=== PATIENT | male | born 2000 | race Caucasian/White ===

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

== ENCOUNTER 2018-07-11 12:22 | Emergency (ER) | payer BC, OTHER ==
[2018-07-11 12:30] VITALS: BP 141/99; PULSE 102; TEMP 98.3
--- NOTE | 2018-07-11 13:02 | XR ---
EXAMINATION TYPE: XR knee complete LT DATE OF EXAM: 07/11/2018 COMPARISON: NONE HISTORY: Pain TECHNIQUE: Four views are submitted. FINDINGS: Joint spaces are preserved. Osseous structures are intact. No acute fracture seen. There is a supr apatellar bursal fluid collection. IMPRESSION: 1. No acute fracture or dislocation. 2. Large suprapatellar bursal fluid collection. If there is concern for internal derangement correlat e with MRI.
[2018-07-11] MEDS ORDERED: IBUPROFEN 600 MG TAB PO STA (13:25)
--- NOTE | 2018-07-11 13:28 | ED ---
General Adult HPI - General Chief complaint: Extremity Injury, Lower Stated complaint: leg injury Time Seen by Provider: 07/11/18 12:35 Source: patient, RN notes reviewed Mode of arrival: wheelchair Limitations: no limitations - History of Present Illness Initial comments: Patient 18-year-old male presented to the emergency room today with a chief complaint of injury to the left knee that occurred 2 days ago he was working out. He does admit that he was doing leg press when he felt something in the left knee. He states he's had increased swelling and pain. He does admit that it's worse with extension and flexion on the medial aspect of the knee. Patient does admit that he had a meniscus repair in the past. Patient denies any other complaints or symptoms. Patient denies any recent fever, chills, shortness of breath, chest pain, back pain, abdominal pain, nausea or vomiting, headaches or visual changes, or any other complaints. - Related Data Home Medications Medication Instructions Recorded Confirmed No Known Home Medications 02/03/15 12/19/16 Allergies Allergy/AdvReac Type Severity Reaction Status Date / Time No Known Allergies Allergy Verified 07/11/18 12:30 Review of Systems ROS Statement: Those systems with pertinent positive or pertinent negative responses have been documented in the HPI. ROS Other: All systems not noted in ROS Statement are negative. Past Medical History Past Medical History: No Reported History History of Any Multi-Drug Resistant Organisms: None Reported Past Surgical History: No Surgical Hx Reported Additional Past Surgical History / Comment(s): left meniscus repair. Past Psychological History: No Psychological Hx Reported Smoking Status: Never smoker Past Alcohol Use History: None Reported Past Drug Use History: None Reported General Exam - General Exam Comments Initial Comments: General: The patient is awake and alert, in no distress, and does not appear acutely ill. Neck: The neck is supple, there is no tenderness or JVD. Cardiovascular: There is a regular rate and rhythm. No murmur, rub or gallop is appreciated. Respiratory: Lungs are clear to auscultation, respirations are non-labored, breath sounds are equal. No wheezes, stridor, rales, or rhonchi. Musculoskeletal: Moderate swelling of the left knee. Patient shows limited range of motion with extension -5 in flexion -15 due to pain. Patient does have some tenderness over the medial aspect. No tenderness to the left hip or down to lay left ankle. Sensations are intact. Pedal pulses 2+. Neurological: A&O x 3. CN II-XII intact, There are no obvious motor or sensory deficits. Coordination appears grossly intact. Speech is normal. Skin: Skin is warm and dry and no rashes or lesions are noted. Psychiatric: Normal mood and affect. Limitations: no limitations Course Vital Signs 07/11/18 12:27 Temperature 98.3 F Pulse Rate 102 H Respiratory 18 Rate Blood Pressure 141/99 O2 Sat by Pulse 99 Oximetry Medical Decision Making - Medical Decision Making X-ray reviewed does show moderate effusion. Results were discussed with the patient. He is advised ice elevate the affected area and follow-up with orthopedics. Denies use anti-inflammatories and ice elevate the affected area. Disposition Clinical Impression: Knee effusion Disposition: HOME SELF-CARE Condition: Good Instructions: Knee Pain (ED) Additional Instructions: Please follow-up with orthopedic doctor over the next 2-5 days. Please continue to ice elevate the affected area. Please use ibuprofen for pain. Return to emergency room for any other concerns.. Is patient prescribed a controlled substance at d/c from ED?: No Referrals: None,Stated [Primary Care Provider] - 1-2 days Jethro Pinto MD [REFERRING] - 1-2 days Time of Disposition: 13:27
[2018-07-11 13:52] VITALS: RESP 16
== END 2018-07-11 14:05 | disposition home or self-care (01) ==
LOC: EC 12:22
DX: M25.462 Effusion, left knee (principal)
CPT/HCPCS: 99283

== ENCOUNTER → 2019-05-04 | Outpatient (CLI) | payer BC, OTHER ==
[2019-05-04 13:09] LABS: HCT 42.7 % (39.0-53.0); HGB 13.6 gm/dL (13.0-17.5); Hypochromasia Slight; MCH 28.8 pg (25.0-35.0); MCHC 31.9 g/dL (31.0-37.0); MCV 90.5 fL (80.0-100.0); Mean Platelet Volume 5.5; Platelet Count 410 k/uL (150-450); RBC 4.72 m/uL (4.30-5.90); RDW 12.7 % (11.5-15.5); WBC 15.5 k/uL (4.0-11.0)
[2019-05-04 21:18] LABS: Chol/HDL Ratio 3.69; LDL Cholesterol,Calculated 98.2 mg/dL (0.0-131.0); VLDL Calculation 14.8 mg/dL (5.00-40.00)
== END | disposition home or self-care (01) ==
LOC: LABWHC1 11:55
PROVIDERS: ATTEND Physician Assistant
DX: L70.0 Acne vulgaris (principal); Z79.899 Other long term (current) drug therapy
CPT/HCPCS: 36415; 80061; 84450; 84460; 85027

== ENCOUNTER → 2019-06-20 | Outpatient (CLI) | payer BC, OTHER ==
[2019-06-20 14:58] LABS: HCT 41.2 % (39.0-53.0); HGB 13.1 gm/dL (13.0-17.5); Hypochromasia Slight; MCHC 31.9 g/dL (31.0-37.0); Mean Platelet Volume 5.4; Platelet Count 440 k/uL (150-450); RBC 4.68 m/uL (4.30-5.90); WBC 16.9 k/uL (4.0-11.0)
[2019-06-20 18:52] LABS: Chol/HDL Ratio 4.16; LDL Cholesterol,Calculated 98.6 mg/dL (0.0-131.0); VLDL Calculation 18.4 mg/dL (5.00-40.00)
== END | disposition home or self-care (01) ==
LOC: LABWHC1 13:52
PROVIDERS: ATTEND Physician Assistant
DX: L70.0 Acne vulgaris (principal); Z79.899 Other long term (current) drug therapy
CPT/HCPCS: 36415; 80061; 84450; 84460; 85027

== ENCOUNTER → 2019-09-06 | Outpatient (CLI) | payer BC, OTHER ==
[2019-09-06 14:41] LABS: Basophils % (A) 0 %; Eosinophils # (A) 0.1 k/uL (0-0.7); Eosinophils % (A) 1 %; HCT 41.7 % (39.0-53.0); HGB 12.5 gm/dL (13.0-17.5); Hypochromasia Slight; Lymphocytes # (A) 2.5 k/uL (1.0-4.8); Lymphocytes % (A) 25 %; MCH 26.1 pg (25.0-35.0); MCHC 29.9 g/dL (31.0-37.0); MCV 87.2 fL (80.0-100.0); Mean Platelet Volume 6.9; Monocytes # (A) 0.7 k/uL (0-1.0); Monocytes % (A) 7 %; Neutrophils # (A) 6.1 k/uL (1.3-7.7); Neutrophils % (A) 64 %; Platelet Count 436 k/uL (150-450); RBC 4.79 m/uL (4.30-5.90); RDW 13.3 % (11.5-15.5); WBC 9.6 k/uL (3.8-10.6)
[2019-09-06 16:32] LABS: Erythrocyte Sedimentation Rate 36 mm/hr (0-15)
[2019-09-06 18:39] LABS: Albumin 4.1 g/dL (3.80-4.90); Albumin/Globulin Ratio 1.28 (1.60-3.17); Anion Gap 8.6 mmol/L (4.00-12.00); BUN/Creat Ratio 16.67 Ratio (12.00-20.00); C Reactive Protein 2.3 mg/dL (0.0-0.8); Calcium 9.6 mg/dL (8.7-10.3); Carbon Dioxide 29.4 mmol/L (21.6-31.8); Chol/HDL Ratio 4.18; Globulin 3.2 g/dL (1.6-3.3); LDL Cholesterol,Calculated 100.2 mg/dL (0.0-131.0); Non-African American GFR(CKD) 121.7 (60.0-200.0); Potassium 5.3 mmol/L (3.5-5.5); Total Bilirubin 0.1 mg/dL (0.3-1.2); Total Protein 7.3 g/dL (6.2-8.2); VLDL Calculation 20.8 mg/dL (5.00-40.00)
[2019-09-06 20:21] LABS: Cyclic Citrull Pep IgG Unit 1.6 U/mL; Cyclic Citrullinated Pep IgG NEGATIVE (NEGATIVE)
== END | disposition home or self-care (01) ==
LOC: LABWHC1 13:47
PROVIDERS: ATTEND Internal Medicine Rheumatology
DX: Z51.81 Encounter for therapeutic drug level monitoring (principal)
CPT/HCPCS: 36415; 80053; 80061; 85025; 85652; 86038; 86140; 86200; 86431

== ENCOUNTER 2020-04-11 19:31 | Emergency (ER) | payer BC, OTHER ==
[2020-04-11 19:44] VITALS: TEMP 98.6
[2020-04-11 21:48] LABS: Basophils # (A) 0.1 k/uL (0-0.2); Basophils % (A) 1 %; Eosinophils # (A) 0.1 k/uL (0-0.7); Eosinophils % (A) 1 %; HCT 37.1 % (39.0-53.0); HGB 11.7 gm/dL (13.0-17.5); Lymphocytes # (A) 1.6 k/uL (1.0-4.8); Lymphocytes % (A) 19 %; MCH 26.8 pg (25.0-35.0); MCHC 31.7 g/dL (31.0-37.0); MCV 84.7 fL (80.0-100.0); Mean Platelet Volume 6.8; Monocytes % (A) 12 %; Neutrophils # (A) 5.5 k/uL (1.3-7.7); Neutrophils % (A) 66 %; Platelet Count 345 k/uL (150-450); RBC 4.38 m/uL (4.30-5.90); RDW 12.7 % (11.5-15.5); WBC 8.4 k/uL (3.8-10.6)
--- NOTE | 2020-04-11 21:57 | XR ---
EXAMINATION TYPE: XR chest 2V DATE OF EXAM: 04/11/2020 COMPARISON: 03/08/2013 HISTORY: Chest pain TECHNIQUE: FINDINGS: Heart and mediastinum are normal. Lungs are clear. Diaphragm is normal. Bony thorax appears normal. IMPRESSION: Normal chest. No change.
[2020-04-11 22:00] LABS: ALT 9 U/L (4-49); AST 22 U/L (17-59); African American GFR (CKD) >90 (>60 ml/min/1.73 sqM); Albumin 3.8 g/dL (3.5-5.0); Alkaline Phosphatase 85 U/L (38-126); Anion Gap 7 mmol/L; Blood Urea Nitrogen 11 mg/dL (9-20); Carbon Dioxide 30 mmol/L (22-30); Chloride 105 mmol/L (98-107); Glucose 89 mg/dL (74-99); Magnesium 1.8 mg/dL (1.6-2.3); Non-African American GFR(CKD) >90 (>60 ml/min/1.73 sqM); Potassium 4.3 mmol/L (3.5-5.1); Sodium 142 mmol/L (137-145); Total Bilirubin 0.3 mg/dL (0.2-1.3); Total Protein 7.1 g/dL (6.3-8.2)
[2020-04-11] MEDS ORDERED: SODIUM CHLORIDE 0.9% 1,000 ML IV ONE (22:33)
[2020-04-11 23:20] VITALS: PULSE 87; RESP 17
--- NOTE | 2020-04-11 23:23 | CT ---
EXAMINATION TYPE: CT chest angio for PE DATE OF EXAM: 04/11/2020 COMPARISON: None HISTORY: chest pain, elevated d-dimer CT DLP: 463.9 mGycm Automated exposure control for dose reduction was used. CONTRAST: Performed without and with IV Contrast, patient injected with 100 mL of Isovue 300. There are 3-D post processed images. The lungs are clear of infiltrate. There is no evidence of a pulmonary mass. There is no pleural effu fracisco or pneumothorax. There is no mediastinal adenopathy. Thoracic aorta is intact. There are no hilar masses. There is no aneurysm or dissection. There is normal contrast opacification of the pulmonary arteries. There are no filling defects. Thoracic spine is intact. Sternum appears intact. The ribs appear intact. The upper abdominal soft ti ssues appear intact. IMPRESSION: Normal exam. No evidence of pulmonary embolism.
--- NOTE | 2020-04-12 00:17 | ED ---
General Adult HPI - General Chief complaint: Chest Pain Stated complaint: Chest Pain Time Seen by Provider: 04/11/20 20:48 Source: patient, RN notes reviewed, old records reviewed Mode of arrival: ambulatory Limitations: no limitations - History of Present Illness Initial comments: 27-year-old male patient presents ED for evaluation. Patient reports that he did have some right parasternal chest pain reports that it was sharply pleuritic in nature. Began about 2 hours prior to presentation. This time pain has resolved. Denies any recent falls or trauma. Denies any acute complaints. Systemic: Pt denies fatigue, fever/chills, rash. Pt denies weakness, night sweats, weight loss. Neuro: Pt denies headache, visual disturbances, syncope or pre-syncope. HEENT: Pt denies ocular discharge or irritation, otalgia, rhinorrhea, pharyngitis or notable lymphadenopathy. Cardiopulmonary: Pt denies SOB, heart palpitations, dyspnea on exertion. Abdominal/GI: Pt denies abdominal pain, n/v/d. : Pt denies dysuria, burning w/ urination, frequency/urgency. Denies new onset urinary or bowel incontinence. MSK: Pt denies myalgia, loss of strength or function in extremities. Neuro: Pt denies new onset weakness, paresthesias. - Related Data Home Medications Medication Instructions Recorded Confirmed No Known Home Medications 04/11/20 04/11/20 Allergies Allergy/AdvReac Type Severity Reaction Status Date / Time No Known Allergies Allergy Verified 04/11/20 21:46 Review of Systems ROS Statement: Those systems with pertinent positive or pertinent negative responses have been documented in the HPI. ROS Other: All systems not noted in ROS Statement are negative. Past Medical History Past Medical History: No Reported History History of Any Multi-Drug Resistant Organisms: None Reported Past Surgical History: No Surgical Hx Reported Additional Past Surgical History / Comment(s): left meniscus repair. Past Psychological History: No Psychological Hx Reported Smoking Status: Never smoker Past Alcohol Use History: None Reported Past Drug Use History: None Reported General Exam - General Exam Comments Initial Comments: Constitutional: NAD, AOX3, Pt has pleasant affect. HEENT: NC/AT, trachea midline, neck supple, no lymphadenopathy. Posterior pharynx non erythematous, without exudates. External ears appear normal, without discharge. Mucous membranes moist. Eyes PERRLA, EOM intact. There is no scleral icterus. No pallor noted. Cardiopulmonary: RRR, no murmurs, rubs or gallops, no JVD noted. Lungs CTAB in anterior and posterior landry. No peripheral edema. Abdominal exam: Abdomen soft and non-distended. Abdomen non-tender to palpation in all 4 quadrants. Bowel sounds active in LLQ. No hepatosplenomegaly. No ecchymosis Neuro: CN II-XII grossly intact. No nuchal rigidity. MSK: No posterior calf tenderness bilaterally, homans sign negative bilaterally. Posterior tibialis and radial pulse +2 bilaterally. Sensation intact in upper and lower extremities. Full active ROM in upper and lower extremities, 5/5 stregnth. Limitations: no limitations Course Vital Signs 04/11/20 04/11/20 04/11/20 19:41 20:48 21:30 Temperature 98.6 F 98.6 F Pulse Rate 95 98 Pulse Rate [ 80 [place] Wiper ] Respiratory 18 18 Rate Blood Pressure 142/90 127/71 O2 Sat by Pulse 99 100 Oximetry 04/11/20 04/11/20 04/12/20 23:01 23:19 00:31 Temperature Pulse Rate 94 87 Pulse Rate [ [place] Wiper ] Respiratory 18 17 Rate Blood Pressure 126/63 135/74 134/67 O2 Sat by Pulse 98 100 Oximetry Medical Decision Making - Medical Decision Making 19-year-old male patient was seen for chest pain. Patient will signs are stable, afebrile. Physical exam did not display acute pathology. The investigations revealed elevated D dimer. CT is negative. EKG is nonischemic. Patient is asymptomatic. Will be discharged with outpatient follow-up. Case discussed with Dr. Lucia. - Lab Data Result diagrams: 04/11/20 21:36 04/11/20 21:36 Lab Results 04/11/20 04/11/20 04/11/20 Range/Units 21:36 21:36 21:36 WBC 8.4 (3.8-10.6) k/uL RBC 4.38 (4.30-5.90) m/uL Hgb 11.7 L (13.0-17.5) gm/dL Hct 37.1 L (39.0-53.0) % MCV 84.7 (80.0-100.0) fL MCH 26.8 (25.0-35.0) pg MCHC 31.7 (31.0-37.0) g/dL RDW 12.7 (11.5-15.5) % Plt Count 345 (150-450) k/uL Neutrophils % 66 % Lymphocytes % 19 % Monocytes % 12 % Eosinophils % 1 % Basophils % 1 % Neutrophils # 5.5 (1.3-7.7) k/uL Lymphocytes # 1.6 (1.0-4.8) k/uL Monocytes # 1.0 (0-1.0) k/uL Eosinophils # 0.1 (0-0.7) k/uL Basophils # 0.1 (0-0.2) k/uL D-Dimer (<0.60) mg/L FEU Sodium 142 (137-145) mmol/L Potassium 4.3 (3.5-5.1) mmol/L Chloride 105 (98-107) mmol/L Carbon Dioxide 30 (22-30) mmol/L Anion Gap 7 mmol/L BUN 11 (9-20) mg/dL Creatinine 1.09 (0.66-1.25) mg/dL Est GFR (CKD-EPI)AfAm >90 (>60 ml/min/1.73 sqM) Est GFR (CKD-EPI)NonAf >90 (>60 ml/min/1.73 sqM) Glucose 89 (74-99) mg/dL Calcium 9.0 (8.4-10.2) mg/dL Magnesium 1.8 (1.6-2.3) mg/dL Total Bilirubin 0.3 (0.2-1.3) mg/dL AST 22 (17-59) U/L ALT 9 (4-49) U/L Alkaline Phosphatase 85 (38-126) U/L Troponin I <0.012 (0.000-0.034) ng/mL Total Protein 7.1 (6.3-8.2) g/dL Albumin 3.8 (3.5-5.0) g/dL 04/11/20 Range/Units 21:36 WBC (3.8-10.6) k/uL RBC (4.30-5.90) m/uL Hgb (13.0-17.5) gm/dL Hct (39.0-53.0) % MCV (80.0-100.0) fL MCH (25.0-35.0) pg MCHC (31.0-37.0) g/dL RDW (11.5-15.5) % Plt Count (150-450) k/uL Neutrophils % % Lymphocytes % % Monocytes % % Eosinophils % % Basophils % % Neutrophils # (1.3-7.7) k/uL Lymphocytes # (1.0-4.8) k/uL Monocytes # (0-1.0) k/uL Eosinophils # (0-0.7) k/uL Basophils # (0-0.2) k/uL D-Dimer 4.40 H (<0.60) mg/L FEU Sodium (137-145) mmol/L Potassium (3.5-5.1) mmol/L Chloride (98-107) mmol/L Carbon Dioxide (22-30) mmol/L Anion Gap mmol/L BUN (9-20) mg/dL Creatinine (0.66-1.25) mg/dL Est GFR (CKD-EPI)AfAm (>60 ml/min/1.73 sqM) Est GFR (CKD-EPI)NonAf (>60 ml/min/1.73 sqM) Glucose (74-99) mg/dL Calcium (8.4-10.2) mg/dL Magnesium (1.6-2.3) mg/dL Total Bilirubin (0.2-1.3) mg/dL AST (17-59) U/L ALT (4-49) U/L Alkaline Phosphatase (38-126) U/L Troponin I (0.000-0.034) ng/mL Total Protein (6.3-8.2) g/dL Albumin (3.5-5.0) g/dL - EKG Data -: EKG Interpreted by Me (and Dr. Lucia ) EKG Comments: ventricular rate 79, WA interval 142, QRS 82, QT/QTC 360/412. Normal sinus rhythm, normal EKG, no concern for acute ischemia. Disposition Clinical Impression: Atypical chest pain Disposition: HOME SELF-CARE Condition: Stable Instructions (If sedation given, give patient instructions): Chest Wall Pain ( ED) Additional Instructions: follow-up with primary care provider tomorrow. Return to ER if any worsening symptoms. Is patient prescribed a controlled substance at d/c from ED?: No Referrals: Vitor Mayes MD [Primary Care Provider] - 1-2 days
[2020-04-12 00:32] VITALS: BP 134/67
== END 2020-04-12 00:29 | disposition home or self-care (01) ==
LOC: EC 19:31
DX: R07.89 Other chest pain (principal)
CPT/HCPCS: 36415; 93005; 85379; 80053; 83735; 84484; 85025; 71046; 71275; 99285; 96360; Q9967

== ENCOUNTER 2021-04-30 19:59 | Emergency (ER) | payer BC, OTHER ==
[2021-04-30 20:35] VITALS: BP 134/84; PULSE 79; RESP 18; TEMP 98.1
[2021-04-30] MEDS ORDERED: PROPARACAINE 0.5% OPHTH DROPS 15 ML BTL LEFT EYE STA (20:57)
[2021-04-30] MEDS ORDERED: FLUORESCEIN STRIPS 1 MG STRIP LEFT EYE ONE (20:57)
--- NOTE | 2021-04-30 21:51 | ED ---
Eye Problem HPI - General Chief complaint: Eye Problems Stated complaint: Eye irritation Time Seen by Provider: 04/30/21 20:54 Source: patient, RN notes reviewed Mode of arrival: ambulatory Limitations: no limitations - History of Present Illness Initial comments: Patient is a 20-year-old male presenting to the emergency Department with complaints of left eye irritation started this morning. He states the eye feels very irritated, straining and has trouble opening all the way secondary to light sensitivity. He feels like there is something underneath his top eyelid. He does not remember getting anything in his eye, he denies any recent colds. He does not wear contacts. Denies any fevers or chills. There is only clear drainage from the eye. He has no further complaints. - Related Data Previous Rx's Medication Instructions Recorded Erythromycin Ophth Oint [Romycin 1 applic LEFT EYE QID 5 Days #1 gm 04/30/21 Ophth Oint] Allergies Allergy/AdvReac Type Severity Reaction Status Date / Time No Known Allergies Allergy Verified 04/30/21 20:33 Review of Systems ROS Statement: Those systems with pertinent positive or pertinent negative responses have been documented in the HPI. ROS Other: All systems not noted in ROS Statement are negative. Past Medical History Past Medical History: No Reported History History of Any Multi-Drug Resistant Organisms: None Reported Past Surgical History: No Surgical Hx Reported Additional Past Surgical History / Comment(s): left meniscus repair. Past Psychological History: No Psychological Hx Reported Smoking Status: Never smoker Past Alcohol Use History: None Reported Past Drug Use History: None Reported General Exam - General Exam Comments Initial Comments: GENERAL: Patient is well-developed and well-nourished. Patient is nontoxic and in no acute distress. HEAD: Atraumatic, normocephalic. EYES: Pupils equal round and reactive to light, extraocular movements intact, sclera anicteric. Eyelids were unremarkable. Left eye is slightly injected, there is no foreign body visible, on fluorescein stain there is no obvious corneal abrasion, no foreign body. No styes present. ENT: Moist mucous membranes. LUNGS: Unlabored respirations. Breath sounds clear to auscultation bilaterally and equal. No wheezes rales or rhonchi. HEART: Regular rate and rhythm without murmurs, rubs or gallops. MUSCULOSKELETAL: Normal extremities with adequate strength and normal range of motion, no pitting or edema. No clubbing or cyanosis. SKIN: Warm, Dry, normal turgor, no rashes or lesions noted. Limitations: no limitations Course Vital Signs 04/30/21 20:30 Temperature 98.1 F Pulse Rate 79 Respiratory 18 Rate Blood Pressure 134/84 O2 Sat by Pulse 100 Oximetry Medical Decision Making - Medical Decision Making Patient is a 20-year-old male here for left eye irritation started this morning. I see no foreign body in the eye, no signs of corneal abrasion on fluorescein stain. He did report improvement after proparacaine drops. He does not work contacts. I will start him on erythromycin ointment for possible small abrasion. He is agreeable to this. Symptoms persisted follow up with his eye doctor. Return parameters were discussed with him and he verbalized understanding. Case discussed with Dr. Schneider. Disposition Clinical Impression: Left eye pain Disposition: HOME SELF-CARE Condition: Stable Instructions (If sedation given, give patient instructions): Eye Pain (ED) Additional Instructions: Please return to the Emergency Department if symptoms worsen or any other concerns. Use antibiotic eye ointment as prescribed. If symptoms persist, follow-up with eye doctor. Prescriptions: Erythromycin Ophth Oint [Romycin Ophth Oint] 1 applic LEFT EYE QID 5 Days #1 gm Is patient prescribed a controlled substance at d/c from ED?: No Referrals: None,Stated [Primary Care Provider] - 1-2 days Steffen Disla MD [STAFF PHYSICIAN] - 1-2 days Time of Disposition: 21:50
== END 2021-04-30 21:55 | disposition home or self-care (01) ==
LOC: EC 19:59
DX: H57.12 Ocular pain, left eye (principal)
CPT/HCPCS: 99283

== ENCOUNTER → 2021-05-02 | Outpatient (CLI) | payer OTHER ==
[2021-05-02 23:30] LABS: Rheumatoid Factor, Qnt <10 IU/mL (0-15)
[2021-05-04 11:23] LABS: Angiotensin-1 Converting Enz. 34 U/L (8-52)
[2021-05-04 13:50] LABS: HLA B27 NEGATIVE
== END | disposition home or self-care (01) ==
LOC: LABWHC1 11:09
PROVIDERS: ATTEND Ophthalmology
DX: H20.9 Unspecified iridocyclitis (principal)
CPT/HCPCS: 36415; 82164; 85549; 85652; 86038; 86140; 86431; 86618; 86780; 86812

== ENCOUNTER → 2021-07-06 | Outpatient (CLI) | payer OTHER ==
--- NOTE | 2021-07-06 13:09 | XR ---
Right shoulder HISTORY: S 46.811A 3 views the right shoulder The distal clavicle is slightly superiorly displaced in relation to the acromion. No evident fracture or dislocation. Right lung apex as visualized is normal. IMPRESSION: Findings may represent type II acromial clavicular separation
== END | disposition home or self-care (01) ==
LOC: RADXRMAIN 12:44
PROVIDERS: ATTEND Emergency Medicine
DX: S46.811A Strain of other muscles, fascia and tendons at shoulder and upper arm level, right arm, initial encounter (principal)

== ENCOUNTER 2021-10-13 10:25 | Emergency (ER) | payer OTHER ==
[2021-10-13 10:47] VITALS: RESP 16; TEMP 98
[2021-10-13 11:30] VITALS: BP 122/63; PULSE 68
--- NOTE | 2021-10-13 11:44 | ED ---
Head Injury HPI - General Chief complaint: Head Injury Stated complaint: [facility]-head injury Time Seen by Provider: 10/13/21 10:27 Source: patient, EMS, RN notes reviewed Mode of arrival: EMS Limitations: no limitations - History of Present Illness Initial comments: This a 21-year-old male presents emergency Department with chief complaint of head injury. Patient states he is sitting up with bad states that work fell off striking the back service had he felt very days, diffuse initially states that symptoms are resolving pelvic using a pass out. He had no loss conscious. He does complain of severe headache at this time. Patient denies any blood thinners. Patient denies any vomiting feels slightly nauseated no visual changes at this time. - Related Data Home Medications Medication Instructions Recorded Confirmed No Known Home Medications 10/13/21 10/13/21 Allergies/Adverse reactions: Allergies Allergy/AdvReac Type Severity Reaction Status Date / Time No Known Allergies Allergy Verified 10/13/21 11:23 Review of Systems ROS Statement: Those systems with pertinent positive or pertinent negative responses have been documented in the HPI. ROS Other: All systems not noted in ROS Statement are negative. Past Medical History Past Medical History: No Reported History History of Any Multi-Drug Resistant Organisms: None Reported Past Surgical History: Orthopedic Surgery Additional Past Surgical History / Comment(s): left meniscus repair. Past Psychological History: No Psychological Hx Reported Smoking Status: Never smoker Past Alcohol Use History: None Reported Past Drug Use History: None Reported General Exam Limitations: no limitations General appearance: alert, in no apparent distress Head exam: Present: atraumatic, normocephalic, normal inspection Eye exam: Present: normal appearance, PERRL, EOMI. Absent: scleral icterus, conjunctival injection, periorbital swelling ENT exam: Present: normal exam, normal oropharynx, mucous membranes moist Neck exam: Present: normal inspection, full ROM. Absent: tenderness, meningismus, lymphadenopathy Respiratory exam: Present: normal lung sounds bilaterally. Absent: respiratory distress, wheezes, rales, rhonchi, stridor Cardiovascular Exam: Present: regular rate, normal rhythm, normal heart sounds. Absent: systolic murmur, diastolic murmur, rubs, gallop, clicks Neurological exam: Present: alert, oriented X3, CN II-XII intact, reflexes normal, other (Finger to nose intact bilaterally). Absent: motor sensory deficit Skin exam: Present: warm, dry, intact, normal color. Absent: rash Course Vital Signs 10/13/21 10/13/21 10:25 11:28 Temperature 98 F Pulse Rate 84 68 Respiratory 16 16 Rate Blood Pressure 145/75 122/63 O2 Sat by Pulse 99 98 Oximetry Disposition Clinical Impression: Contusion of head Disposition: HOME SELF-CARE Condition: Stable Instructions (If sedation given, give patient instructions): Head Injury (ED) Additional Instructions: Please return to the Emergency Department if symptoms worsen or any other concerns. Is patient prescribed a controlled substance at d/c from ED?: No Referrals: None,Stated [Primary Care Provider] - 1-2 days Time of Disposition: 12:24
--- NOTE | 2021-10-13 12:16 | CT ---
EXAMINATION TYPE: CT brain wo con DATE OF EXAM: 10/13/2021 COMPARISON: CT dated 04/03/2011 HISTORY: Head injury, nausea and headache. CT DLP: 1125.4 mGycm Automated exposure control for dose reduction was used. TECHNIQUE: CT scan of the brain is performed without IV contrast administration. FINDINGS: No acute intracranial hemorrhage. No gross acute cortical infarct. No midline shift, herniation or ve ntriculomegaly. Unremarkable kirkpatrick-white matter differentiation, basal cisterns, sella and CP angles. No gross space-o ccupying lesion, vasogenic edema or mass effect. Unremarkable orbits. Left maxillary sinus polyp/retention cyst. Clear visualized mastoid air cells. U nremarkable calvarial bones. IMPRESSION: No acute intracranial posttraumatic sequela or acute calvarial bone fracture.
== END 2021-10-13 12:36 | disposition home or self-care (01) ==
LOC: EC 10:25
DX: S00.93XA Contusion of unspecified part of head, initial encounter (principal); W19.XXXA Unspecified fall, initial encounter; Y99.0 Civilian activity done for income or pay
CPT/HCPCS: 70450; 99283